=== PATIENT | female | born 1990 | race Hispanic/Latino ===

== ENCOUNTER → 2018-10-16 | Outpatient (CLI) | payer BC | END | disposition home or self-care (01) | LOC: RAH 08:02 | PROVIDERS: ATTEND Family Medicine | DX: R10.11 Right upper quadrant pain (principal) | CPT/HCPCS: 76700 ==

== ENCOUNTER 2020-03-10 11:23 | Emergency (ER) | payer BC, MEDICAID ==
[2020-03-10] MEDS ORDERED: DEXTROSE 50%-WATER 50 ML DISP.SYRIN IV ONE (12:04)
== END 2020-03-10 14:12 | disposition home or self-care (01) ==
LOC: EDH 11:23
DX: O26.893 Other specified pregnancy related conditions, third trimester (principal); Z3A.29 29 weeks gestation of pregnancy; Z98.890 Other specified postprocedural states; Z87.891 Personal history of nicotine dependence
CPT/HCPCS: 36415; 82948 ×2; 83033; 86850; 86900; 86901; 96372; 96374; 99284; J2791; J7070

== ENCOUNTER 2020-04-08 10:43 | Observation (INO) | payer BC, MEDICAID ==
[2020-04-08 11:46] LABS: BASOPHILS % (AUTO) 0.3 % (0.0-5.0); EOSINOPHILS % (AUTO) 1.5 % (0.0-8.0); HEMATOCRIT 35.8 % (36-48); LYMPHOCYTES % (AUTO) 27.9 % (21.0-51.0); MEAN CORPUSCULAR HEMOGLOBIN 29.2 pg (27.0-33.0); MEAN CORPUSCULAR VOLUME 88.6 fL (79-99); MONOCYTES % (AUTO) 6.3 % (3.0-13.0); NEUTROPHILS % (AUTO) 63.4 % (40.0-77.0); PLATELET COUNT (AUTO) 248 K/uL (130-400); RED BLOOD CELL COUNT(AUTO) 4.04 MIL/uL (4.00-5.50); RED CELL DISTRIBUTION WIDTH 12.6 % (11.0-15.5); WHITE BLOOD COUNT (AUTO) 12.5 K/uL (4.8-10.8)
[2020-04-08 11:48] LABS: APPEARANCE,URINE Cloudy (CLEAR); BILIRUBIN,URINE Negative (NEGATIVE); COLOR,URINE Yellow (YELLOW); GLUCOSE, URINE (UA) Negative (NEGATIVE); KETONES,URINE Negative (NEGATIVE); LEUKOCYTE ESTERASE ,URINE Moderate (NEGATIVE); NITRATE,URINE Negative (NEGATIVE); OCCULT BLOOD,URINE Negative (NEGATIVE); PH,URINE 5.5 (5.0-8.0); PROTEIN,URINE Negative (NEGATIVE); UROBILINOGEN,URINE 0.2 mg/dL (0.2-1.0)
[2020-04-08 11:57] LABS: BACTERIA,URINE Few /HPF (None Seen); RBC,URINE 0-1 /HPF (0-1); SQUAMOUS EPITHELIAL CELL,UR Moderate /HPF (0-2)
[2020-04-08 11:59] LABS: CREATININE 0.7 mg/dL (0.5-1.5); POTASSIUM 3.9 mmol/L (3.5-5.1)
[2020-04-08 12:05] LABS: ALBUMIN 2.6 g/dL (3.5-5.0); BILIRUBIN,TOTAL 0.2 mg/dL (0.2-1.0); TOTAL PROTEIN, SERUM 6.9 g/dL (6.0-8.3); URIC ACID 4.6 mg/dL (2.6-7.2)
[2020-04-08] MEDS ORDERED: CEFTRIAXONE SODIUM 1 GM IM SCH (12:15)
[2020-04-08 12:25] LABS: INR 0.87 (0.85-1.15); PARTIAL THROMBOPLASTIN TIME 27.3 SEC (26.3-35.5); PROTHROMBIN TIME 9.4 SEC (9.6-11.6)
[2020-04-08] MEDS ORDERED: LIDOCAINE HCL 1% 20 ML VIAL INJ SCH (12:45)
[2020-04-09 08:11] LABS: HEPATITIS Bs ANTIGEN SCREEN P Negative (Negative)
== END 2020-04-08 12:55 | disposition home or self-care (01) ==
LOC: LDH 10:43
PROVIDERS: ADMIT Obstetrics & Gynecology; ATTEND Obstetrics & Gynecology
DX: O26.893 Other specified pregnancy related conditions, third trimester (principal); R03.0 Elevated blood-pressure reading, without diagnosis of hypertension; Z3A.33 33 weeks gestation of pregnancy
CPT/HCPCS: 36415; 59025; 76819; 80053; 81001; 83036; 84550; 85025; 85384; 85610; 85730; 86592; 86850; 86870; 86900; 86901; 87088; 87340; 96372; G0378 ×2; J0696

== ENCOUNTER 2020-04-12 14:39 | Observation (INO) | payer BC, MEDICAID ==
[2020-04-12 15:37] LABS: APPEARANCE,URINE Clear (CLEAR); BILIRUBIN,URINE Negative (NEGATIVE); COLOR,URINE Yellow (YELLOW); GLUCOSE, URINE (UA) Negative (NEGATIVE); KETONES,URINE Negative (NEGATIVE); LEUKOCYTE ESTERASE ,URINE Negative (NEGATIVE); NITRATE,URINE Negative (NEGATIVE); OCCULT BLOOD,URINE Negative (NEGATIVE); PROTEIN,URINE Negative (NEGATIVE); UROBILINOGEN,URINE 0.2 mg/dL (0.2-1.0)
== END 2020-04-12 15:58 | disposition home or self-care (01) ==
LOC: LDH 14:39
PROVIDERS: ADMIT Obstetrics & Gynecology; ATTEND Obstetrics & Gynecology
DX: O26.893 Other specified pregnancy related conditions, third trimester (principal); R03.0 Elevated blood-pressure reading, without diagnosis of hypertension; Z3A.34 34 weeks gestation of pregnancy
CPT/HCPCS: 81003; G0378 ×2

== ENCOUNTER 2020-05-11 11:30 | Observation (INO) | payer BC, MEDICAID | END 2020-05-16 09:25 | disposition home or self-care (01) | LOC: LDH 05-16 07:33 → INTOOBSV 05-16 07:33 → UNDOADMOB 05-16 07:33 → LDH 05-16 07:33 | PROVIDERS: ADMIT Obstetrics & Gynecology; ATTEND Obstetrics & Gynecology | DX: O26.893 Other specified pregnancy related conditions, third trimester (principal); Z20.828 Contact with and (suspected) exposure to other viral communicable diseases; Z3A.39 39 weeks gestation of pregnancy | CPT/HCPCS: 36415; 76819; G0378 ×2; U0003 ==

== ENCOUNTER 2020-05-17 04:45 | Inpatient (IN) | payer BC, MEDICAID ==
[~2020-05-17] VITALS: Ht 154.9 cm; Wt 118.8 kg
[2020-05-17] MEDS ORDERED: LACTATED RINGERS 1000ML 1,000 ML IV PRN (04:56)
[2020-05-17 05:35] LABS: HEMATOCRIT 38.2 % (36-48); MEAN CORPUSCULAR HEMOGLOBIN 28.2 pg (27.0-33.0); MEAN CORPUSCULAR HGB CONC 32.7 g/dL (32.0-36.0); MEAN CORPUSCULAR VOLUME 86.2 fL (79-99); NUCLEATED RED BLOOD CELLS 0.3 % (0.0-0.19); RED BLOOD CELL COUNT(AUTO) 4.43 MIL/uL (4.00-5.50); RED CELL DISTRIBUTION WIDTH 13.8 % (11.0-15.5); WHITE BLOOD COUNT (AUTO) 14.3 K/uL (4.8-10.8)
[2020-05-17 05:47] LABS: APPEARANCE,URINE Clear (CLEAR); BILIRUBIN,URINE Negative (NEGATIVE); COLOR,URINE Yellow (YELLOW); GLUCOSE, URINE (UA) Negative (NEGATIVE); KETONES,URINE Negative (NEGATIVE); LEUKOCYTE ESTERASE ,URINE Negative (NEGATIVE); NITRATE,URINE Negative (NEGATIVE); OCCULT BLOOD,URINE Moderate (NEGATIVE); PROTEIN,URINE POS 2+ mg/dL (NEGATIVE)
[2020-05-17] MEDS ORDERED: CALDOLOR 800MG+NS 250ML 250 ML IV PRN (06:00)
[2020-05-17] MEDS ORDERED: CEFAZOLIN SODIUM 1 GM VIAL IVP PRN (06:00)
[2020-05-17] MEDS ORDERED: LACTATED RINGERS 1000ML 1,000 ML IV SCH (06:00)
[2020-05-17 06:09] VITALS: BP 154/95
[2020-05-17 06:13] LABS: BACTERIA,URINE Few /HPF (None Seen); SQUAMOUS EPITHELIAL CELL,UR Moderate /HPF (0-2); WBC,URINE None Seen /HPF (0-1)
[2020-05-17] MEDS ORDERED: OXYTOCIN 10 USP UNITS/ML ONE (07:21)
[2020-05-17] MEDS ORDERED: DURAMORPH PF1 MG/ML 10ML AMP IV ONE (07:21)
[2020-05-17] MEDS ORDERED: CEFAZOLIN SODIUM 1 GM VIAL IVP ONE (07:43)
[2020-05-17 07:47] LABS: AMPHET/METH SCREEN,URINE NEGATIVE (NEGATIVE); BARBITURATE SCREEN, URINE NEGATIVE (NEGATIVE); BENZODIAZEPINES SCREEN,URINE NEGATIVE (NEGATIVE); CANNABINOID SCREEN,URINE NEGATIVE (NEGATIVE); COCAINE SCREEN,URINE NEGATIVE (NEGATIVE); OPIATE SCREEN,URINE NEGATIVE (NEGATIVE); PHENCYCLIDINE SCREEN,URINE NEGATIVE (NEGATIVE)
[2020-05-17] MEDS ORDERED: LANOLIN 30GM OINTMENT TP PRN (08:30)
[2020-05-17] MEDS ORDERED: ACETAMINOPHEN EXTRA STRENGTH 500 MG TABLET PO PRN (08:30)
[2020-05-17] MEDS ORDERED: DIPHENHYDRAMINE HCL 25 MG CAPSULE PO PRN (08:30)
[2020-05-17] MEDS ORDERED: SODIUM CHLORIDE 0.9% 10 ML VIAL IVP PRN (08:30)
[2020-05-17] MEDS ORDERED: BISACODYL 10 MG SUPP.RECT RC PRN (08:30)
[2020-05-17] MEDS ORDERED: PROMETHAZINE HCL 25 MG/ML 1ML AMPULE IM PRN (08:30)
[2020-05-17] MEDS ORDERED: OXYTOCIN-LR 20 UNITS/1000 ML 1,000 ML IV PRN (08:30)
[2020-05-17] MEDS ORDERED: DIPH,PERTUSS(ACELL),TET VAC/PF 0.5 ML VIAL IM SCH (08:30)
[2020-05-17] MEDS ORDERED: MEASLES/MUMPS/RUBELLA VACCINE, LIVE 0.5 ML/VIAL SQ SCH (08:30)
[2020-05-17] MEDS: IBUPROFEN 800 MG TAB PO SCH (08:30)
[2020-05-17] MEDS ORDERED: MEPERIDINE-PF 75 MG/ML SYG IM PRN (08:30)
[2020-05-17] MEDS ORDERED: ONDANSETRON HCL 4 MG/2 ML VIAL IVP PRN (09:45)
[2020-05-17] MEDS ORDERED: NALOXONE HCL 0.4 MG/1 ML ML IVP PRN ×3 (09:45)
[2020-05-17 09:52] VITALS: BP 137/78
[2020-05-17] MEDS: DiphenhydrAMINE HCL 50 MG/ML VIAL IVP PRN ×2 (10:27→18:35)
[2020-05-17] MEDS: LIDOCAINE 5% TOPICAL PATCH TP SCH (10:27)
[2020-05-17 11:30] VITALS: BP 125/75
[2020-05-17] MEDS: HYDROCODONE/ACETAMINOPHEN 5/325 MG TAB PO PRN (11:46)
[2020-05-17 16:05] VITALS: BP 142/86
[2020-05-17] MEDS: CALDOLOR 800MG+NS 250ML 250 ML IV SCH (16:21)
--- NOTE | 2020-05-17 20:00 | NUR ---
STATUS ABD BINDER APPLIED, ENCOURAGED TO TCDB, ASSISTED TO SIDE OF BED TO DANGLE, TOLERATED WELL Addendum: 05/18/20 at 0248 by AICHA CAMPOS LVN Amended: Links added.
[2020-05-17 20:02] VITALS: BP 145/77
[2020-05-17] MEDS: DOCUSATE SODIUM 100 MG CAP PO SCH (21:50)
[2020-05-17] MEDS: SIMETHICONE 80 MG TAB.CHEW PO PRN (21:50)
[2020-05-17] MEDS: DEXTROSE 5 %-0.45 % NACL 1,000 ML IV PRN (22:48)
[2020-05-17 23:30] VITALS: BP 118/59
[2020-05-18] MEDS: CALDOLOR 800MG+NS 250ML 250 ML IV SCH (00:53)
[2020-05-18 03:56] VITALS: BP 119/65
--- NOTE | 2020-05-18 05:55 | NUR ---
ACTIVITY/COMFORT/GRAMAJO CATHETER F/C REMOVED , CATHETER INTACT, WENDY CARE GIVEN, PT INSTRUCTED TO MARCOS FOR ASSISTANCE WHEN SHE HAS URGE TO VOID, ASSISTED UP TO CHAIR, ORAL CARE DONE, MEDICATED WITH HYDROCODONE FOR PAIN RELIEF, INSTRUCTED TO NURSE WHEN SHE IS READY FOR BED,CALL LIGHT AT SIDE Addendum: 05/18/20 at 0616 by AICHA CAMPOS LVN Amended: Links added.
[2020-05-18] MEDS: DEXTROSE 5 %-0.45 % NACL 1,000 ML IV PRN (06:03)
[2020-05-18] MEDS: HYDROCODONE/ACETAMINOPHEN 5/325 MG TAB PO PRN ×2 (06:04→19:57)
[2020-05-18 06:37] LABS: HEMATOCRIT 33.4 % (36-48); MEAN CORPUSCULAR HEMOGLOBIN 28.1 pg (27.0-33.0); MEAN CORPUSCULAR HGB CONC 31.7 g/dL (32.0-36.0); MEAN CORPUSCULAR VOLUME 88.6 fL (79-99); RED BLOOD CELL COUNT(AUTO) 3.77 MIL/uL (4.00-5.50); RED CELL DISTRIBUTION WIDTH 14.2 % (11.0-15.5); WHITE BLOOD COUNT (AUTO) 11.1 K/uL (4.8-10.8)
[2020-05-18 07:50] VITALS: BP 133/89
[2020-05-18] MEDS: SIMETHICONE 80 MG TAB.CHEW PO PRN ×3 (08:59→19:56)
[2020-05-18] MEDS: LIDOCAINE 5% TOPICAL PATCH TP SCH (09:00)
[2020-05-18] MEDS: DOCUSATE SODIUM 100 MG CAP PO SCH ×2 (09:00→19:56)
[2020-05-18] MEDS: IBUPROFEN 800 MG TAB PO SCH ×2 (09:02→17:19)
[2020-05-18 09:12] LABS: HEPATITIS Bs ANTIGEN SCREEN P Negative (Negative)
[2020-05-18 11:34] VITALS: BP 112/60
--- NOTE | 2020-05-18 11:45 | NUR ---
PATIENT STATES BABY WILL NOT BE DISCHARGED AND SHE WANTS TO STAY WITH BABY.
[2020-05-18] MEDS: ACETAMINOPHEN-CODEINE 300/30MG TAB PO PRN ×2 (11:46→15:46)
--- NOTE | 2020-05-18 14:15 | NUR ---
RHOGAM VERIFIED WITH ROSE GALLEGO. RHOGAM GIVEN TO RIGHT GLUTEUS IM . NO BLOOD ON ASPIRATION. PATIENT TOLERATED INJECTION WELL.
--- NOTE | 2020-05-18 15:50 | NUR ---
PATIENT STATES SHE HAS NOT PASSED GAS AND HAS PRESSURE ON SHOULDER. WARM PRUNE JUICE GIVEN, ADVISED PATIENT TO CONTINUE TO AMBULATE. PATIENT VOICED UNDERSTANDING.
[2020-05-18 16:05] VITALS: BP 127/72
--- NOTE | 2020-05-18 16:53 | NUR ---
PATIENT AMBULATING IN HALLWAY. NO C/O DIZZINESS REPORTED.
[2020-05-18 19:10] VITALS: BP 135/82
[2020-05-18 23:38] VITALS: BP 131/64
[2020-05-19] MEDS: IBUPROFEN 800 MG TAB PO SCH ×2 (01:39→08:43)
[2020-05-19 03:11] VITALS: BP 129/61
[2020-05-19] MEDS: ACETAMINOPHEN-CODEINE 300/30MG TAB PO PRN (06:53)
[2020-05-19 07:13] VITALS: BP 107/58
--- NOTE | 2020-05-19 07:30 | NUR ---
ASSESSMENT DONE. VERBALIZED UNDERSTANDING WHEN INSTRUCTED TO KEEP A ABD PAD OR KOTEX ON INCISION TO KEEP IT DRY DUE TO LARGE SKIN FOLD. PATIENT INDICATED WANTING TO SHOWER AND DENIES ANY PROBLEMS OTHER THAN INCISIONAL DISCOMFORT DUE TO NO BM BUT IS PASSING FLATUS. DISCHARGE INSTRUCTIONS GIVEN ON PREVIOUS DAY, BUT BABY WAS NOT DISCHARGED.
[2020-05-19] MEDS: LIDOCAINE 5% TOPICAL PATCH TP SCH (08:41)
[2020-05-19] MEDS: SIMETHICONE 80 MG TAB.CHEW PO PRN (08:41)
[2020-05-19] MEDS: DOCUSATE SODIUM 100 MG CAP PO SCH (08:41)
--- NOTE | 2020-05-19 09:00 | NUR ---
LIDODERM PATCH APPLIED AFTER TAKING SHOWER. INSTRUCTED PATIENT TO REMOVE AFTER 12 HOUR.
--- NOTE | 2020-05-19 10:45 | NUR ---
PATIENT WAS TAKEN VIA W/C CARRYING BABY IN ARMS TO FAMILY VEHICLE AND WAS DISCHARGED TO SPOUSE IN STABLE CONDITION. PATIENT STABLE AND DENIES PAIN.
== END 2020-05-19 10:45 | disposition home or self-care (01) | DRG 788 ==
LOC: EDH 04:45 → OBSVTOIN 04:46 → LDH 04:46 → WSH 09:50
PROVIDERS: ADMIT Obstetrics & Gynecology; ATTEND Obstetrics & Gynecology
PROC: 3E0234Z Introduction of Serum, Toxoid and Vaccine into Muscle, Percutaneous Approach (ICD-10-PCS; 2020-05-17)
PROC: 3E0134Z Introduction of Serum, Toxoid and Vaccine into Subcutaneous Tissue, Percutaneous Approach (ICD-10-PCS; 2020-05-17)
PROC: 3E0334Z Introduction of Serum, Toxoid and Vaccine into Peripheral Vein, Percutaneous Approach (ICD-10-PCS; 2020-05-17)
PROC: 10D00Z1 Extraction of Products of Conception, Low, Open Approach (ICD-10-PCS; principal; 2020-05-17 07:30)
DX: O34.211 Maternal care for low transverse scar from previous cesarean delivery (principal); Z37.0 Single live birth; O99.214 Obesity complicating childbirth; E66.9 Obesity, unspecified; N73.6 Female pelvic peritoneal adhesions (postinfective); O99.89 Other specified diseases and conditions complicating pregnancy, childbirth and the puerperium; O99.62 Diseases of the digestive system complicating childbirth; K21.9 Gastro-esophageal reflux disease without esophagitis; O24.425 Gestational diabetes mellitus in childbirth, controlled by oral hypoglycemic drugs; O99.824 Streptococcus B carrier state complicating childbirth; O26.893 Other specified pregnancy related conditions, third trimester; Z67.41 Type O blood, Rh negative; Z3A.39 39 weeks gestation of pregnancy; Z23 Encounter for immunization
CPT/HCPCS: 36415; 59510; 76819; 80305; 81001; 82947; 83033; 85027; 86592; 86850; 86900; 86901; 87340; 90715; A4344; G0378; J0690; J1200; J1741; J2175; J2274; J2405; J2550; J2590; J2791; J7120; Q0163; U0003